=== PATIENT | male | born 1950 | race Hispanic/Latino ===

== ENCOUNTER 2018-05-24 09:07 | Day surgery (SDC) | payer MEDICARE ==
[2018-05-24] MEDS ORDERED: Lactated Ringer's 500 ML IV ONE (09:47)
[2018-05-24] MEDS ORDERED: Propofol 10 mg/ml Inj (20 ML) ONE (11:01)
[2018-05-24 11:43] VITALS: TEMP 96.8
[2018-05-24 11:56] VITALS: BP 126/74; PULSE 52; RESP 15; O2SAT 100
== END 2018-05-24 12:26 | disposition home or self-care (01) ==
LOC: H.ENDO 09:07
PROVIDERS: ATTEND Internal Medicine Gastroenterology
DX: K64.1 Second degree hemorrhoids (principal); D12.5 Benign neoplasm of sigmoid colon; K92.1 Melena
CPT/HCPCS: 45380; 88305; J2001; J2704; J7120